=== PATIENT | male | born 1970 | race Caucasian/White ===

== ENCOUNTER → 2022-06-20 09:11 | Outpatient (CLI) | payer OTHER, SELFPAY ==
--- NOTE | ~2022-06-20 | XR_ITS ---
Supine and upright views of the abdomen Clinical history: Abdominal pain Findings: Bowel gas pattern is nonspecific. No evidence for obstruction or free air. No abnormal mass lesion or calcification is seen. Osseous structures are intact. Impression: No significant abnormality is seen. Reviewed, dictated and finalized at [facility]. MANAGER Impression: No significant abnormality is seen.
== END ==
PROVIDERS: PCP Family Medicine; Visit Provider Nurse Practitioner Gerontology
DX: R10.9 Unspecified abdominal pain (principal)
CPT/HCPCS: 74018

== ENCOUNTER → 2022-06-26 16:00 | Outpatient (CLI) | payer OTHER, SELFPAY ==
--- NOTE | ~2022-06-26 | US_ITS ---
EXAMINATION: US abdomen complete DATE: 06/26/2022 16:25 INDICATION: R10.9 - Unspecified abdominal pain TECHNIQUE: Multiple grayscale and Doppler ultrasound images of the abdomen were obtained. COMPARISON: None available. FINDINGS: The visualized portions of the pancreas are normal. 3.0 cm hyperechoic focus in the posteri or right lobe, may represent a hemangioma. 1.5 cm simple liver cyst. Normal liver parenchymal echogen icity. No surface nodularity. Normal hepatopetal flow in the main portal vein. The gallbladder is nor mal with no abnormal wall thickening, pericholecystic fluid or stones. The common bile duct measures 3 mm. There was no sonographic Moss sign. The visualized portions of the aorta and inferior vena ca va are normal. The right kidney measures 12.6 x 6.7 x 6.2. The left kidney measures 13.1 x 6.4 x 5.5. The kidneys de monstrate normal parenchymal echogenicity. There is no hydronephrosis. The spleen is normal in appear ance and measures 11.5 cm. IMPRESSION: Normal abdominal ultrasound findings. Reviewed, dictated and finalized at location [facility]. HOLOGY TEACHER
== END ==
PROVIDERS: PCP Family Medicine; Visit Provider Nurse Practitioner Gerontology
DX: R10.9 Unspecified abdominal pain (principal)
CPT/HCPCS: 76700

== ENCOUNTER 2023-02-15 06:23 | Day surgery (SDC) | payer OTHER, SELFPAY ==
[2023-01-09 11:26] VITALS: BMI 27.0
[2023-02-05 11:31] VITALS: BMI 28.3
[2023-02-15 08:00] VITALS: BP 129/91; PULSE 70; RESP 16; TEMP 36.6; O2SAT 99
--- NOTE | 2023-02-15 08:12 | WPDANESEPPF ---
Anes - Initial Pre Proc Eval Procedure: Operation Date: 02/15/23 09:00 Proposed Procedures p Screening Colonoscopy - Stephan Alanis MD Date/Time: 02/15/23 08:12 Surgeon: Stephan Alanis MD Pre Op Diagnosis: Neoplasm Screening Patient Data Age: 53 Gender: M Height: 1.88 m Weight: 100 kg Allergies Allergy/AdvReac Type Severity Reaction Status Date / Time Sulfa (Sulfonamide Allergy Mild hives Verified 02/05/23 11:29 Antibiotics) Penicillins Allergy hives Verified 02/05/23 11:29 TANGERINES Allergy Mild hives Uncoded 01/09/23 07:46 Home Medications Medication Instructions Recorded Confirmed Type citalopram 20 mg tablet See Rx Instructions .Route 11/15/22 02/05/23 Rx .COMPLEX #90 tabs alprazolam 0.25 mg tablet 0.25 mg PO DAILY #30 tabs 01/09/23 02/05/23 Rx citalopram 10 mg tablet 10 mg PO DAILY #30 tabs 01/09/23 02/05/23 Rx levothyroxine 50 mcg tablet See Rx Instructions .Route 01/10/23 02/05/23 Rx .COMPLEX #90 tabs cefdinir 300 mg capsule 300 mg PO Q12H #20 caps 02/08/23 Rx rosuvastatin 10 mg tablet See Rx Instructions .Route 02/09/23 Rx .COMPLEX #90 tabs Patient hx anesthesia problems: none Family hx anesthesia problems: none Results Review: All pre-operative results and documents have been reviewed as part of the pre-operative evaluation. [facility] Past Medical History Medical History Elevated LDL cholesterol level RDAHA (generalized anxiety disorder) Subclinical hypothyroidism Family History Family History Grandparent Heart disease Mother Lung cancer Father Heart disease Mixed hyperlipidemia Social History Social History Social History: Smoking status: Never smoker Second hand tobacco smoke exposure: No Alcohol intake: current Drinks per week: 10 Substance use: never Substance use type: does not use Living arrangements: with family Occupation/Education: occupation Gender identity (if verbalized by the patient): Male Sexual Orientation (if Verbalized by the Patient): Straight or Heterosexual Spiritual care concerns: No Anes - Eval Final PreProcedure Day of Procedure 02/15/23 08:12 Patient weight: overweight Heart: regular rate and rhythm Lungs: clear to auscultation Airway: Mallampati scale class II Neurological: alert and oriented Last oral intake: >/= 8 hours ASA classification: II Emergent: no Anesthetic plan: proceed Anesthesia type and monitoring: general GIVS and standard monitoring Results Review: All pre-operative results and documents have been reviewed as part of the pre-operative evaluation. Informed Consent: The patient's anesthetic plan and its attendant risks and benefits were discussed with the patient/family/POA. Questions were solicited and answers provided to the satisfaction of the patient/family/POA.
[2023-02-15] MEDS: LACTATED RINGERS 1,000 ML 150 ML IV CONT (08:15)
--- NOTE | 2023-02-15 08:34 | PM.HPGS ---
History of Present Illness History of Present Illness Consent: Risks, benefits, and alternatives have been discussed and questions answered. Patient agrees to proceed with procedure. Chief complaint: Neoplasm Screening Narrative: Toribio Holliday is a 53 year old male here for first screening colonoscopy Review of Systems Constitutional: Constitutional: Denies headache(s) and Denies weakness Eyes: Eyes: Denies blurry vision ENT: Reports Normal hearing present, Denies headache(s) and Denies neck pain Cardiovascular: Cardiovascular: Denies chest pain and Denies dyspnea Respiratory: Respiratory: Denies dyspnea Gastrointestinal: Gastrointestinal: Reports no additional gastrointestinal complaints Genitourinary: Genitourinary: Denies dysuria Musculoskeletal: Musculoskeletal: Denies neck pain Integumentary/Breasts: Skin/Breast: Denies dry skin Neurologic: Reports Normal hearing present, Denies headache(s) and Denies weakness Psychiatric: Psychiatric: Denies anxiety Endocrine: Endocrine: Denies change in body appearance Hematologic/Lymphatic: Hematologic/Lymphatic: Denies easy bleeding Allergic/Immunologic: Allergic/Immunologic: Denies urticaria PMFSH Past Medical History Medical History Elevated LDL cholesterol level RADHA (generalized anxiety disorder) Subclinical hypothyroidism Family History Family History Grandparent Heart disease Mother Lung cancer Father Heart disease Mixed hyperlipidemia Social History Social History Social History: Smoking status: Never smoker Second hand tobacco smoke exposure: No Alcohol intake: current Drinks per week: 10 Substance use: never Substance use type: does not use Living arrangements: with family Occupation/Education: occupation Gender identity (if verbalized by the patient): Male Sexual Orientation (if Verbalized by the Patient): Straight or Heterosexual Spiritual care concerns: No Meds Home Medications and Allergies Home Medications Medication Instructions Recorded Confirmed Type citalopram 20 mg tablet See Rx Instructions .Route 11/15/22 02/15/23 Rx .COMPLEX #90 tabs alprazolam 0.25 mg tablet 0.25 mg PO DAILY #30 tabs 01/09/23 02/15/23 Rx citalopram 10 mg tablet 10 mg PO DAILY #30 tabs 01/09/23 02/15/23 Rx levothyroxine 50 mcg tablet See Rx Instructions .Route 01/10/23 02/15/23 Rx .COMPLEX #90 tabs cefdinir 300 mg capsule 300 mg PO Q12H #20 caps 02/08/23 02/15/23 Rx rosuvastatin 10 mg tablet See Rx Instructions .Route 02/09/23 02/15/23 Rx .COMPLEX #90 tabs Allergies Allergy/AdvReac Type Severity Reaction Status Date / Time Sulfa (Sulfonamide Allergy Mild hives Verified 02/15/23 08:20 Antibiotics) Penicillins Allergy hives Verified 02/15/23 08:20 TANGERINES Allergy Mild hives Uncoded 02/15/23 08:20 Vital Signs Vital Signs - 24 hr 02/15/23 08:00 Temperature 97.8 F Pulse Rate 70 Respiratory Rate 16 Blood Pressure 129/91 H Pulse Oximetry 99 Oxygen Delivery Room Air Exam Const: General: comfortable and no acute distress HENMT: Face/Nose/Sinus: Normal nares present Eyes: General: appearance normal, both eyes and all related structures Neck: Neck: no JVD Resp: Auscultation: clear to auscultation bilaterally Cardio: Rate: regular rate Rhythm: regular rhythm GI: Inspection: non-distended GI Palp: Yes Soft to palpation Skin: General skin exam: normal color Neuro: General: gait normal Speech: normal speech Extrem: General: normal to inspection Psych: Mental Status: mental status grossly normal Assessment and Plan Assessment and plan (1) Colon cancer screening: Code(s): Z12.11 - Encounter for screening for malignant neoplasm of colon Status: Acute Assessment and Sharif
[2023-02-15 09:10] VITALS: BP 116/68; PULSE 74; RESP 16; O2SAT 96
[2023-02-15 09:20] VITALS: BP 118/81; PULSE 60; RESP 16; O2SAT 97
[2023-02-15 09:30] VITALS: BP 118/85; PULSE 62; RESP 16; O2SAT 100
--- NOTE | 2023-02-15 09:43 | WPDANESPN ---
Anes - Prog Note Post-Op Date/Time: 02/15/23 09:43 Cardiovascular status: normal Respiratory status: normal Airway patency: baseline Mental status: baseline Post-Op hydration status: normal Vital Signs: Last Vital Signs Temp 36.6 C 02/15/23 08:00 Pulse 62 02/15/23 09:30 Resp 16 02/15/23 09:30 BP 118/85 02/15/23 09:30 Pulse Ox 100 02/15/23 09:30 O2 Del Method Room Air 02/15/23 09:30 Pain Score (VAS): 0 I/O: Intake & Output 02/14/23 02/15/23 02/15/23 23:59 07:59 15:59 Intake Total 700 Balance 700 Patient Feedback: Patient satisfied with anesthetic care.
== END 2023-02-15 09:45 | disposition home or self-care (01) ==
PROVIDERS: PCP Family Medicine; Visit Provider Internal Medicine Gastroenterology
PROC: 0DJD8ZZ Inspection of Lower Intestinal Tract, Via Natural or Artificial Opening Endoscopic (ICD-10-PCS; CPT 45378; principal; 2023-02-15 09:00)
DX: Z12.11 Encounter for screening for malignant neoplasm of colon (principal); D12.2 Benign neoplasm of ascending colon; D12.3 Benign neoplasm of transverse colon; D12.4 Benign neoplasm of descending colon
CPT/HCPCS: 45385

== ENCOUNTER 2023-02-15 09:00 | Outpatient (NON) | payer OTHER, SELFPAY | END 2023-02-15 09:01 | disposition home or self-care (01) | PROVIDERS: PCP Family Medicine; Visit Provider Internal Medicine Gastroenterology | DX: Z12.11 Encounter for screening for malignant neoplasm of colon (principal) | CPT/HCPCS: 88305 ==